=== PATIENT | female | born 1980 | race Caucasian/White ===

== ENCOUNTER 2020-06-01 07:40 | Day surgery (SDC) | payer BC ==
[2020-05-31 17:52] LABS: BASOPHILS 0.3 % (0-2); EOSINOPHILS 2.5 % (0-7); HEMATOCRIT 43.2 % (36.0-48.0); HEMOGLOBIN 14.2 g/dL (12-16); IMMATURE GRANULOCYTES 0.4 % (0-5); LYMPHOCYTES 11.3 % (15-50); MCHC 32.9 g/dL (31.0-37.0); MCV 94.3 fL (80.0-100.0); MEAN PLATELET VOLUME 10.9 fL (7.4-10.4); MONOCYTES 6.7 % (2-11); NEUTROPHIL ABS# 12.51 10x3/uL (1.56-6.13); NEUTROPHILS 78.8 % (40-80); PLATELET COUNT 303 10x3/uL (130-400); RBC 4.58 10x6/uL (4.00-5.40); RDW 13.7 % (11.5-14.5); WBC 15.9 10x3/uL (4.8-10.8)
[2020-05-31 17:57] LABS: CALC OSMOLALITY 279 mosm/kg (275-300); CALCIUM 8.9 mg/dL (8.5-10.1); CARBON DIOXIDE 25.2 mmol/L (21.0-32.0); CHLORIDE - SERUM 102 mmol/L (98-107); CREATININE - SERUM 0.8 mg/dL (0.6-1.3); GLUCOSE 84 mg/dL (74-106); POTASSIUM - SERUM 3.6 mmol/L (3.5-5.1); SODIUM 141 mmol/L (136-145); UREA NITROGEN 13 mg/dL (7-18); eGFR NON AFRICAN AMERICAN 85 mL/min (90-120)
[~2020-06-01] VITALS: Ht 175.3 cm; Wt 99.8 kg
[~2020-06-01 07:40] MED LIST: CLONIDINE HCL0.1 MG PO; ZOLOFT100 MG PO
[2020-06-01] MEDS ORDERED: FOCALIN XR20 MG PO (08:57)
[2020-06-01 08:58] VITALS: BP 138/97; Ht 175.3 cm; Wt 99.8 kg
[2020-06-01] MEDS ORDERED: PROTONIX40 MG PO (08:58)
[2020-06-01 09:12] LABS: HCG URINE NEGATIVE (NEGATIVE)
[2020-06-01 09:38] LABS: BILIRUBIN NEGATIVE (NEGATIVE); KETONE NEGATIVE (NEGATIVE); NITRITE NEGATIVE (NEGATIVE)
[2020-06-01 09:40] LABS: SQUAMOUS EPITHELIAL 0-5 HPF (0-4)
[2020-06-01 09:41] LABS: BACTERIA FEW HPF (NONE SEEN); WHITE CELLS - URINE 0-5 HPF (0-4)
--- NOTE | 2020-06-01 12:11 | NUR ---
1100 DR NIX CALLED AT OFFICE FOR POST OP ORDERS AND RX IF NEEDED AND THAT PT IS IN PAIN 09/20. WAITING FOR CALL 1125 NO RETURN CALL CALLED CELL NUMBER AND ORDERS ARE BEING PUT IN NOW. 1145 IV REMOVED AND INSTRUCTIONS GIVEN
--- NOTE | 2020-06-10 12:17 | OP ---
PATIENT NAME: GEORGIE SWANSON MEDICAL RECORD: [id number] :80 LOCATION:D.OPS ADMISSION DATE: SURGEON: THONG NIX DO DATE OF OPERATION: 06/01/2020 PREOPERATIVE DIAGNOSIS: Prolapsing fibroid versus cervical polyp, abnormal uterine bleeding. POSTOPERATIVE DIAGNOSES: Cervical polyp versus cervical fibroid. PRIMARY SURGEON: Thong Nix DO ADDICTION NURSE SURGEON: Ayad Pemberton MD ANESTHESIA: General ET tube. PROCEDURE: Removal of cervical polyp, hysteroscopy, dilation and curettage. FINDINGS: Large polypoid structure on the anterior portion of the cervix. Normal-appearing external genitalia, normal appearing vaginal vault, normal appearing cervix. Endometrial cavity grossly normal. Normal appearing bilateral fallopian tube ostia. SPECIMEN: Cervical polyp versus fibroid. ESTIMATED BLOOD LOSS: 10 cc. URINE OUTPUT: 100 cc. COMPLICATIONS: None. CONDITION: Stable. PROCEDURE: The risks, benefits, alternatives, and indications of the procedure were discussed with the patient. She voiced understanding of the procedure and signed the consent. She was taken to the OR where general anesthesia was administered and found to be adequate. She was placed in the dorsal lithotomy position. She was prepped and draped in the normal sterile fashion. The bladder was emptied with a red rubber catheter and a speculum was placed in the posterior aspect of the vagina with good visualization of the mass. It was noted to be originating from the anterior lip of the cervix. The fibroid versus polyp was grasped with Allis and the Bovie was used to remove the entire mass, which was sent to pathology. With good hemostasis noted at the origination point. A tenaculum was used to grasp the anterior lip of the cervix and the uterus was sounded to 8 cm. The cervix was further dilated to accommodate the hysteroscope. The hysteroscope was inserted into the uterine cavity and no abnormalities were noted grossly. Normal appearing bilateral fallopian tube ostia were noted. The hysteroscope was removed and the cervix was further dilated to accommodate a curette. A gentle sharp curettage was performed and endometrial curettings were sent to pathology. The tenaculum was removed and good hemostasis was noted at the tenaculum site. All instruments were removed from the vagina. All lap, sponge, and instrument counts were correct times 2. The patient tolerated the procedure well. She was awakened and taken to the recovery room in stable condition. OPERATIVE REPORT [id number] GEORGIE SWANSON TRANSINT:[id number] Voice Confirmation ID: [id number] DOCUMENT ID: [id number] THONG NIX DO at 1217 CC: [id number] DICTATION DATE: 06/10/20 0858 SET OFF BLOCKER: 06/10/20 0938 [facility] 06/01/20 [place] [id number]
== END 2020-06-01 12:00 | disposition home or self-care (01) ==
LOC: D.OPS 07:40
PROVIDERS: Anesthesiology; ATTEND Student in an Organized Health Care Education/Training Program
DX: D25.9 Leiomyoma of uterus, unspecified (principal); N93.9 Abnormal uterine and vaginal bleeding, unspecified; N84.1 Polyp of cervix uteri